=== PATIENT | male | born 1960 | race Caucasian/White ===

== ENCOUNTER → 2019-10-14 | Outpatient (REF) ==
--- NOTE | 2019-10-14 10:01 | Diagnostic Imaging Report ---
INDICATION: Left wrist pain AP, oblique, and lateral views of the left wrist are obtained. No acute fracture or acute bony abnormality is seen. There is a benign-appearing cyst in the scaphoid. There is mild narrowing of the radiocarpal joint. IMPRESSION: Benign-appearing bone cyst in the scaphoid distally. 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 No acute appearing bony abnormality Dictated by: Dictated on workstation # [id number]
== END | disposition home or self-care (01) ==
LOC: OCC 09:31
PROVIDERS: ATTEND Family Medicine
CPT/HCPCS: 73110